=== PATIENT | male | born 2000 | race Caucasian/White ===

== ENCOUNTER 2023-12-19 18:43 | Emergency (ER) | payer OTHER ==
[~2023-12-19] VITALS: Ht 188 cm; Wt 65.0 kg
[2023-12-19 18:49] VITALS: O2SAT 98
[2023-12-19 20:00] VITALS: BP 121/69; PULSE 84; RESP 16; TEMP 98.2
== END 2023-12-19 20:00 ==
LOC: ER 18:43
DX: S20.359A Superficial foreign body of unspecified front wall of thorax, initial encounter (principal); X58.XXXA Exposure to other specified factors, initial encounter; Y93.89 Activity, other specified; Y92.89 Other specified places as the place of occurrence of the external cause; Y99.8 Other external cause status
CPT/HCPCS: 93005; 99284